=== PATIENT | female | born 1990 | race Two or more races ===

== ENCOUNTER 2023-08-12 11:18 | Outpatient (CLI) | payer MEDICAID | END 2023-08-12 23:59 | disposition home or self-care (01) | LOC: RAD 11:18 | PROVIDERS: ATTEND Obstetrics & Gynecology | DX: O32.1XX0 Maternal care for breech presentation, not applicable or unspecified (principal); Z3A.21 21 weeks gestation of pregnancy | CPT/HCPCS: 76811 ==

== ENCOUNTER 2023-12-03 20:17 | Emergency (ER) | payer MEDICAID ==
[~2023-12-03] VITALS: Ht 172.7 cm; Wt 93.2 kg
[2023-12-03 20:50] LABS: BASOPHILS # (AUTO) 0.1 X10'3 (0-0.2); BASOPHILS % (AUTO) 0.7 % (0-1); EOSINOPHILS # (AUTO) 0.1 X10'3 (0-0.9); EOSINOPHILS % (AUTO) 1.4 % (0-6); HEMATOCRIT 39.6 % (35.0-45.0); HEMOGLOBIN 13.1 g/dl (12.0-16.0); LYMPHOCYTES # (AUTO) 3.3 X10'3 (1.1-4.8); LYMPHOCYTES % (AUTO) 42.8 % (21-51); MEAN CORPUSCULAR HEMOGLOBIN 27.7 PG (27.0-31.0); MEAN CORPUSCULAR HGB CONC 33.1 g/dL (33.0-36.5); MEAN CORPUSCULAR VOLUME 83.9 FL (78-98); MONOCYTES # (AUTO) 0.6 X10'3 (0-0.9); MONOCYTES % (AUTO) 7.5 % (2-12); NEUTROPHILS # (AUTO) 3.6 X10'3 (1.8-7.7); NEUTROPHILS % (AUTO) 47.6 % (42-75); PLATELET COUNT 278 X10'3 (140-440); RED BLOOD COUNT 4.72 X10'6 (4.20-5.60); WHITE BLOOD COUNT 7.6 X10'3 (4.5-11.0)
[2023-12-03 21:04] LABS: ALANINE AMINOTRANSFERASE 32 U/L (12-78); ALBUMIN 3.8 G/DL (3.4-5.0); ALKALINE PHOSPHATASE 81 IU/L (46-116); ANION GAP 13 (8-16); ASPARTATE AMINO TRANSFERASE 15 U/L (10-37); BILIRUBIN,TOTAL 0.6 MG/DL (0.1-1.0); BLOOD UREA NITROGEN 10 MG/DL (7-18); BUN/CREATININE RATIO 12.3 (10.0-20.0); CALCIUM 9.4 MG/DL (8.5-10.1); CHLORIDE 104 MMOL/L (99-107); CREATININE 0.81 MG/DL (0.40-0.90); GLUCOSE 118 MG/DL (70-104); LIPASE 41 U/L (16-77); POTASSIUM 3.6 MMOL/L (3.5-5.1); SODIUM 138 MMOL/L (135-145); TOTAL CARBON DIOXIDE 21.5 MMOL/L (24-32); TOTAL PROTEIN 7.8 G/DL (6.4-8.2); eCRCL 100 ML/MIN; eGFR 81 ML/MIN
[2023-12-03] MEDS ORDERED: LIDOcaine 2% Viscous 15ml cup MM PRN (23:35)
[2023-12-03] MEDS: mag hydrox/Alum hydrox/simeth 30ml oral suspension PO ONE (23:49)
[2023-12-03] MEDS: HYDROcodone/acetaminophen 5mg/325mg tablet PO ONE (23:51)
[2023-12-04 00:16] VITALS: BP 140/91; PULSE 77; RESP 18; TEMP 97.7; O2SAT 95
[2023-12-04] MEDS ORDERED: HYDR-3965 PO (00:19)
[2023-12-04] MEDS ORDERED: FAMO40TA7 PO (13:20)
== END 2023-12-04 00:35 | disposition home or self-care (01) ==
LOC: ER 20:18
DX: O26.899 Other specified pregnancy related conditions, unspecified trimester (principal); R10.13 Epigastric pain
CPT/HCPCS: 36415; 80053; 83690; 84484; 85025; 93005; 99284

== ENCOUNTER 2023-12-04 12:06 | Emergency (ER) | payer MEDICAID ==
[~2023-12-04] VITALS: Ht 172.7 cm; Wt 90.9 kg
[~2023-12-04 12:06] MED LIST: HYDR-3965 PO
[2023-12-04 12:09] VITALS: BP 125/92; PULSE 73; TEMP 98; O2SAT 99
[2023-12-04] MEDS ORDERED: FAMO40TA7 PO (13:20)
[2023-12-04 13:37] VITALS: RESP 18
== END 2023-12-04 13:38 | disposition home or self-care (01) ==
LOC: ER 12:08
DX: K29.00 Acute gastritis without bleeding (principal); R10.13 Epigastric pain; Z79.899 Other long term (current) drug therapy
CPT/HCPCS: 99284

== ENCOUNTER 2024-02-18 19:24 | Emergency (ER) | payer MEDICAID ==
[~2024-02-18] VITALS: Ht 172.7 cm; Wt 90.9 kg
[~2024-02-18 19:24] MED LIST changes: +FAMO40TA7 PO; -HYDR-3965 PO
[2024-02-18 20:08] LABS: BASOPHILS # (AUTO) 0.1 X10'3 (0-0.2); BASOPHILS % (AUTO) 0.6 % (0-1); EOSINOPHILS # (AUTO) 0.2 X10'3 (0-0.9); EOSINOPHILS % (AUTO) 1.8 % (0-6); HEMATOCRIT 38.3 % (35.0-45.0); HEMOGLOBIN 13.2 g/dl (12.0-16.0); LYMPHOCYTES # (AUTO) 3.8 X10'3 (1.1-4.8); LYMPHOCYTES % (AUTO) 43.5 % (21-51); MEAN CORPUSCULAR HEMOGLOBIN 28.3 PG (27.0-31.0); MEAN CORPUSCULAR HGB CONC 34.5 g/dL (33.0-36.5); MEAN PLATELET VOLUME 8.9 FL (7.4-10.4); MONOCYTES # (AUTO) 0.7 X10'3 (0-0.9); MONOCYTES % (AUTO) 8.5 % (2-12); NEUTROPHILS % (AUTO) 45.6 % (42-75); PLATELET COUNT 266 X10'3 (140-440); RED BLOOD COUNT 4.67 X10'6 (4.20-5.60); RED CELL DISTRIBUTION WIDTH 13.1 % (11.5-14.5); WHITE BLOOD COUNT 8.7 X10'3 (4.5-11.0)
[2024-02-18 20:22] LABS: ALANINE AMINOTRANSFERASE 29 U/L (12-78); ALBUMIN 3.7 G/DL (3.4-5.0); ALBUMIN/GLOBULIN RATIO 0.8 (1.1-1.5); ALKALINE PHOSPHATASE 75 IU/L (46-116); ANION GAP 9 (8-16); ASPARTATE AMINO TRANSFERASE 15 U/L (10-37); BILIRUBIN,TOTAL 0.4 MG/DL (0.1-1.0); BLOOD UREA NITROGEN 11 MG/DL (7-18); BUN/CREATININE RATIO 12.8 (10.0-20.0); CALCIUM 9.4 MG/DL (8.5-10.1); CHLORIDE 104 MMOL/L (99-107); CREATININE 0.86 MG/DL (0.40-0.90); GLUCOSE 116 MG/DL (70-104); LIPASE 42 U/L (16-77); POTASSIUM 3.8 MMOL/L (3.5-5.1); SODIUM 138 MMOL/L (135-145); TOTAL CARBON DIOXIDE 24.9 MMOL/L (24-32); TOTAL PROTEIN 8.3 G/DL (6.4-8.2); eCRCL 93 ML/MIN; eGFR 76 ML/MIN
[2024-02-18] MEDS: ondansetron/PF 4mg/2ml inj IV ONE (21:35)
[2024-02-18] MEDS: morphine 4 MG/ML inj SYRINge IV ONE (21:38)
[2024-02-18 22:26] LABS: BILIRUBIN,URINE NEGATIVE (Neg); CLARITY,URINE CLEAR (Clear); COLOR,URINE YELLOW (Yellow); GLUCOSE, URINE NEGATIVE (Neg); KETONES,URINE NEGATIVE (Neg); LEUKOCYTE ESTERASE ,URINE NEGATIVE (Neg); NITRITES, URINE NEGATIVE (Neg); OCCULT BLOOD,URINE NEGATIVE (Neg); PROTEIN,URINE NEGATIVE (Neg); UROBILINOGEN,URINE 0.2 E.U/dL (0.2-1.0)
[2024-02-18 22:28] LABS: URINE HCG NEGATIVE (NEG)
[2024-02-18 22:29] LABS: UA COLLECTION TYPE CLN CATCH MIDSTREAM
[2024-02-18 22:37] VITALS: BP 123/82
[2024-02-18 22:44] VITALS: PULSE 79; RESP 15; TEMP 100.1; O2SAT 95
[2024-02-18] MEDS ORDERED: ONDA-245 PO (22:45)
[2024-02-18] MEDS ORDERED: HYDR-3965 PO (22:45)
== END 2024-02-18 22:57 | disposition home or self-care (01) ==
LOC: ER 19:25
DX: K80.20 Calculus of gallbladder without cholecystitis without obstruction (principal); Z79.899 Other long term (current) drug therapy
CPT/HCPCS: 36415; 76700; 80053; 81003; 81025; 83690; 85025; 96374; 96375; 99285; J2270; J2405

== ENCOUNTER 2024-03-31 23:13 | Emergency (ER) | payer MEDICAID ==
[~2024-03-31] VITALS: Ht 172.7 cm; Wt 90.9 kg
[~2024-03-31 23:13] MED LIST changes: +ONDA-245 PO
[2024-03-31 23:27] VITALS: TEMP 97.8
[2024-03-31 23:43] LABS: BASOPHILS % (AUTO) 0.5 % (0-1); EOSINOPHILS # (AUTO) 0.1 X10'3 (0-0.9); EOSINOPHILS % (AUTO) 1.5 % (0-6); HEMATOCRIT 39.9 % (35.0-45.0); HEMOGLOBIN 13.4 g/dl (12.0-16.0); LYMPHOCYTES # (AUTO) 4.3 X10'3 (1.1-4.8); LYMPHOCYTES % (AUTO) 52.2 % (21-51); MEAN CORPUSCULAR HEMOGLOBIN 27.5 PG (27.0-31.0); MEAN CORPUSCULAR HGB CONC 33.7 g/dL (33.0-36.5); MEAN CORPUSCULAR VOLUME 81.6 FL (78-98); MEAN PLATELET VOLUME 8.8 FL (7.4-10.4); MONOCYTES # (AUTO) 0.6 X10'3 (0-0.9); MONOCYTES % (AUTO) 6.8 % (2-12); NEUTROPHILS # (AUTO) 3.2 X10'3 (1.8-7.7); PLATELET COUNT 302 X10'3 (140-440); RED BLOOD COUNT 4.89 X10'6 (4.20-5.60); RED CELL DISTRIBUTION WIDTH 13.2 % (11.5-14.5); WHITE BLOOD COUNT 8.2 X10'3 (4.5-11.0)
[2024-04-01] LABS: ALANINE AMINOTRANSFERASE 35 U/L (12-78); ALBUMIN 3.8 G/DL (3.4-5.0); ALBUMIN/GLOBULIN RATIO 0.8 (1.1-1.5); ALKALINE PHOSPHATASE 69 IU/L (46-116); ANION GAP 13 (8-16); ASPARTATE AMINO TRANSFERASE 20 U/L (10-37); BILIRUBIN,TOTAL 0.6 MG/DL (0.1-1.0); BLOOD UREA NITROGEN 11 MG/DL (7-18); BUN/CREATININE RATIO 13.3 (10.0-20.0); CALCIUM 9.2 MG/DL (8.5-10.1); CHLORIDE 101 MMOL/L (99-107); CREATININE 0.83 MG/DL (0.40-0.90); LIPASE 41 U/L (16-77); POTASSIUM 3.3 MMOL/L (3.5-5.1); SODIUM 138 MMOL/L (135-145); TOTAL CARBON DIOXIDE 24.4 MMOL/L (24-32); TOTAL PROTEIN 8.7 G/DL (6.4-8.2); eCRCL 96 ML/MIN; eGFR 79 ML/MIN
[2024-04-01 00:12] LABS: TOTAL CELLS COUNTED 100
[2024-04-01] MEDS: ondansetron/PF 4mg/2ml inj IV ONE (00:24)
[2024-04-01 00:29] LABS: GLUCOSE 210 MG/DL (70-104)
[2024-04-01] MEDS: normal saline 1000ml 1,000 ML IV ONE (00:35)
[2024-04-01] MEDS: morphine 4 MG/ML inj SYRINge IV ONE (00:45)
[2024-04-01] MEDS: ketorolac trometh 15mg/ml vial 15 MG/ML ML IV ONE (00:52)
[2024-04-01] MEDS ORDERED: HYDR-3965 PO (02:03)
[2024-04-01] MEDS ORDERED: IBUP-1984 PO (02:03)
[2024-04-01] MEDS ORDERED: ONDA-245 PO (02:03)
[2024-04-01 02:17] VITALS: BP 121/83; PULSE 90; RESP 16; O2SAT 98
== END 2024-04-01 02:28 | disposition home or self-care (01) ==
LOC: ER 23:14
DX: K80.20 Calculus of gallbladder without cholecystitis without obstruction (principal); Z79.899 Other long term (current) drug therapy
CPT/HCPCS: 36415; 80053; 83690; 84145; 85007; 85025; 96361; 96374; 96375; 99284; J1885; J2270; J2405; J7030

== ENCOUNTER 2024-05-03 19:59 | Emergency (ER) | payer MEDICAID ==
[~2024-05-03] VITALS: Ht 172.7 cm; Wt 86.4 kg
[~2024-05-03 19:59] MED LIST changes: +HYDR-3965 PO
[2024-05-03 20:07] VITALS: BP 146/100; PULSE 84; TEMP 98.2; O2SAT 99
[2024-05-03 20:31] LABS: BASOPHILS % (AUTO) 0.4 % (0-1); EOSINOPHILS # (AUTO) 0.1 X10'3 (0-0.9); EOSINOPHILS % (AUTO) 1.1 % (0-6); HEMATOCRIT 39.7 % (35.0-45.0); HEMOGLOBIN 13.3 g/dl (12.0-16.0); LYMPHOCYTES # (AUTO) 4.2 X10'3 (1.1-4.8); LYMPHOCYTES % (AUTO) 51.9 % (21-51); MEAN CORPUSCULAR HEMOGLOBIN 26.9 PG (27.0-31.0); MEAN CORPUSCULAR HGB CONC 33.4 g/dL (33.0-36.5); MEAN CORPUSCULAR VOLUME 80.5 FL (78-98); MEAN PLATELET VOLUME 9.5 FL (7.4-10.4); MONOCYTES # (AUTO) 0.6 X10'3 (0-0.9); NEUTROPHILS # (AUTO) 3.2 X10'3 (1.8-7.7); NEUTROPHILS % (AUTO) 39.6 % (42-75); PLATELET COUNT 258 X10'3 (140-440); RED BLOOD COUNT 4.93 X10'6 (4.20-5.60); RED CELL DISTRIBUTION WIDTH 13.8 % (11.5-14.5); WHITE BLOOD COUNT 8.1 X10'3 (4.5-11.0)
[2024-05-03 20:41] LABS: ALANINE AMINOTRANSFERASE 34 U/L (12-78); ALKALINE PHOSPHATASE 66 IU/L (46-116); ANION GAP 9 (8-16); ASPARTATE AMINO TRANSFERASE 20 U/L (10-37); BILIRUBIN,TOTAL 0.5 MG/DL (0.1-1.0); BLOOD UREA NITROGEN 9 MG/DL (7-18); BUN/CREATININE RATIO 12.5 (10.0-20.0); CALCIUM 9.5 MG/DL (8.5-10.1); CHLORIDE 104 MMOL/L (99-107); CREATININE 0.72 MG/DL (0.40-0.90); GLUCOSE 100 MG/DL (70-104); LIPASE 49 U/L (16-77); POTASSIUM 3.8 MMOL/L (3.5-5.1); SODIUM 139 MMOL/L (135-145); TOTAL CARBON DIOXIDE 25.9 MMOL/L (24-32); TOTAL PROTEIN 7.9 G/DL (6.4-8.2); eCRCL 111 ML/MIN; eGFR > 90 ML/MIN
[2024-05-03 21:06] LABS: TOTAL CELLS COUNTED 100
[2024-05-03 21:41] VITALS: RESP 19
[2024-05-03] MEDS: ketorolac trometh 30MG/ML vial 30 MG/ML VIAL IM STA (21:41)
[2024-05-03] MEDS: oxyCODONE IR 5mg (immed. release) tablet PO STA (21:41)
[2024-05-03] MEDS ORDERED: HYDR-3972 PO (22:16)
== END 2024-05-03 22:26 | disposition home or self-care (01) ==
LOC: ER 20:00
DX: K80.20 Calculus of gallbladder without cholecystitis without obstruction (principal); R10.11 Right upper quadrant pain; Z79.899 Other long term (current) drug therapy
CPT/HCPCS: 80053; 83690; 85007; 85025; 96372; 99283; J1885

== ENCOUNTER 2024-06-15 13:48 | Emergency (ER) | payer MEDICAID ==
[~2024-06-15] VITALS: Ht 172.7 cm; Wt 89.0 kg
[~2024-06-15 13:48] MED LIST changes: -HYDR-3965 PO
[2024-06-15 13:52] VITALS: TEMP 98.5
[2024-06-15 15:17] LABS: BASOPHILS % (AUTO) 0.1 % (0-1); EOSINOPHILS % (AUTO) 0 % (0-6); HEMOGLOBIN 12.5 g/dl (12.0-16.0); LYMPHOCYTES # (AUTO) 0.9 X10'3 (1.1-4.8); LYMPHOCYTES % (AUTO) 5.9 % (21-51); MEAN CORPUSCULAR HEMOGLOBIN 26.9 PG (27.0-31.0); MEAN CORPUSCULAR HGB CONC 33.8 g/dL (33.0-36.5); MEAN CORPUSCULAR VOLUME 79.6 FL (78-98); MEAN PLATELET VOLUME 9.2 FL (7.4-10.4); MONOCYTES # (AUTO) 0.6 X10'3 (0-0.9); MONOCYTES % (AUTO) 4.5 % (2-12); NEUTROPHILS # (AUTO) 12.9 X10'3 (1.8-7.7); NEUTROPHILS % (AUTO) 89.5 % (42-75); PLATELET COUNT 249 X10'3 (140-440); RED BLOOD COUNT 4.65 X10'6 (4.20-5.60); RED CELL DISTRIBUTION WIDTH 14.3 % (11.5-14.5); WHITE BLOOD COUNT 14.4 X10'3 (4.5-11.0)
[2024-06-15] MEDS: acetaminophen 1,000mg/100ml IV 100 ML IV ONE (15:23)
[2024-06-15] MEDS: ondansetron/PF 4mg/2ml inj IV ONE (15:23)
[2024-06-15] MEDS: normal saline 1000ml 1,000 ML IV ONE (15:24)
[2024-06-15 15:29] LABS: ALANINE AMINOTRANSFERASE 22 U/L (12-78); ALBUMIN 3.5 G/DL (3.4-5.0); ALBUMIN/GLOBULIN RATIO 0.9 (1.1-1.5); ALKALINE PHOSPHATASE 59 IU/L (46-116); ANION GAP 9 (8-16); ASPARTATE AMINO TRANSFERASE 11 U/L (10-37); BILIRUBIN,TOTAL 0.7 MG/DL (0.1-1.0); BLOOD UREA NITROGEN 7 MG/DL (7-18); BUN/CREATININE RATIO 8.5 (10.0-20.0); CALCIUM 8.6 MG/DL (8.5-10.1); CHLORIDE 103 MMOL/L (99-107); CREATININE 0.82 MG/DL (0.40-0.90); GLUCOSE 143 MG/DL (70-104); POTASSIUM 3.4 MMOL/L (3.5-5.1); SODIUM 138 MMOL/L (135-145); TOTAL CARBON DIOXIDE 26.2 MMOL/L (24-32); TOTAL PROTEIN 7.4 G/DL (6.4-8.2); eCRCL 98 ML/MIN; eGFR 80 ML/MIN
[2024-06-15 15:30] LABS: BILIRUBIN,URINE NEGATIVE (Neg); CLARITY,URINE CLEAR (Clear); COLOR,URINE YELLOW (Yellow); GLUCOSE, URINE NEGATIVE (Neg); KETONES,URINE TRACE mg/dl (Neg); LEUKOCYTE ESTERASE ,URINE NEGATIVE (Neg); NITRITES, URINE NEGATIVE (Neg); OCCULT BLOOD,URINE MODERATE (Neg); PROTEIN,URINE TRACE mg/dl (Neg); UROBILINOGEN,URINE 0.2 E.U/dL (0.2-1.0)
[2024-06-15 15:40] LABS: UA COLLECTION TYPE CLN CATCH MIDSTREAM
[2024-06-15 15:41] LABS: BACTERIA,URINE 1+ /HPF (Neg); MUCUS STRANDS FEW /LPF (Neg); RENAL CELLS, URINE FEW /HPF; SQUAMOUS EPITHELIAL CELL,UR MANY /LPF (FEW); TRANSITIONAL EPI CELLS,URINE MODERATE /HPF; WBC,URINE 0-4 /HPF (0-4)
[2024-06-15] MEDS ORDERED: IBUP-864 PO (17:09)
[2024-06-15] MEDS ORDERED: AZIT250T83 PO (17:09)
[2024-06-15 17:50] VITALS: BP 119/74; PULSE 109; RESP 16; O2SAT 98
== END 2024-06-15 17:52 | disposition home or self-care (01) ==
LOC: ER 13:48
DX: B34.9 Viral infection, unspecified (principal)
CPT/HCPCS: 36415; 71045; 80053; 81001; 85025; 87502; 87503; 96374; 96375; 99284; J0131; J2405; J7030